=== PATIENT | female | born 1985 | race Caucasian/White ===

== ENCOUNTER 2017-03-13 12:53 | Emergency (ER) | payer SELFPAY ==
[2017-03-13 12:54] VITALS: BP 148/105; PULSE 116; RESP 17; TEMP 37.2; O2SAT 97; BMI 31.4
[2017-03-13 13:21] LABS: Bacteria 0 SEEN /hpf (None Seen); Mucous, Urine 0 SEEN /hpf (<or=2+); Squamous Epithelial Cells - UA 0 SEEN /hpf (5-10)
[2017-03-13] MEDS: Orphenadrine 60 MG/2 ML Ampul IM (13:21)
[2017-03-13] MEDS: Ketorolac 60 MG/2 ML Vial IM (13:21)
[2017-03-13] MEDS: HYDROmorphone 1 MG/ML Syringe IM (13:21)
[2017-03-13 13:23] LABS: Color, Urine Yellow (Yellow); Glucose, Dipstick Normal (Normal); Ketone-Dipstick Negative (Negative); Leukocyte Esterase-Dipstick Negative /ul (Negative); Nitrite-Dipstick Negative (Negative); Occult Blood-Urine 10 /ul (Negative); Protein-Dipstick Negative (Negative); Urine Bilirubin Dipstick Negative (Negative); Urine Clarity Clear (Clear); Urine Urobilinogen Normal (Normal)
[2017-03-13 13:31] LABS: Red Blood Cells-Urine 0-5 SEEN /hpf (0-5); White Blood Cells 0-5 SEEN /hpf (0-5)
--- NOTE | 2017-03-13 14:23 | ED.VISSUMM ---
- ER Visit Summary Date of Service: 03/13/17 Chief Complaint: [Back pain] History of Present Illness: The patient is a 31 F [presents with back pain ?2 days. Patient states that she woke up yesterday with discomfort in her back without any recalled trauma. Patient denies any fever or recent illness. Patient denies urinary symptoms. Denies any pain radiating down her legs or weakness in extremities. She denies any bowel or bladder dysfunction. Patient states that at rest if she just laying flat she does not have much discomfort but it is when she tries to move that she has a lot of discomfort.] Physical Examination: [HEENT-PERRLA, EOMI. Cranial nerves II through XII grossly intact. TMs clear. Mucous membranes moist. No adenopathy. Cardiovascular-regular rate and rhythm without murmur or ectopy Lungs-clear to auscultation, chest wall stable without crepitus or subcu emphysema Abdomen-normoactive bowel sounds, soft, nontender, no rebound or rigidity, no peritoneal signs. Back exam-patient has tenderness over lumbar paraspinal musculature bilaterally with spasm noted. No tenderness over the thoracic or lumbar spine itself. Patient has negative straight leg raises bilaterally. Deep tendon reflexes are plus 2 out of 4 bilaterally at the patella and Achilles. Patient has normal L5 extension bilaterally. Patient has normal sensation to light touch. Evaluation of the skin of the back reveals no evidence of erythema or bruising. There is no crepitus. Extremities-intact ?4, normal range of motion, normal pulses, atraumatic] Test Results: Urinalysis was normal. [] Emergency Department Course and Treatment: Patient was medicated with Toradol, Dilaudid, Phenergan, and Norflex. She has had some relief and is more comfortable but still has pain when she tries to move. [] Treatment Plan: Patient will be given a prescription for Percocet, Naprosyn, and Flexeril [] Disposition: [Discharged home in stable condition. Patient advised to return if worsening pain, fever, weakness in extremities, change in bowel or bladder function, or condition should worsen in any way.] Impression: [Lumbar strain/muscle spasm] This note was generated with [employer] dictation software. It may contain incorrect words, spelling, and punctuation that were not noted in review of the chart prior to signing ED Disposition - Plan for ED Patient: Chief Complaint: Back Referrals: Bryan Nolasco DO [Primary Care Provider] -
--- NOTE | 2017-03-13 14:26 | ED.DEP ---
ED Disposition - Plan for ED Patient: Chief Complaint: Back Instructions: ED Spasm Back No Trauma Prescriptions: Oxycodone HCl/Acetaminophen [Percocet 5/325] 1 tab PO Q6H PRN PRN #20 tab PRN Reason: Pain Naproxen [Naprosyn] 500 mg PO BID PRN #20 tab Cyclobenzaprine [Flexeril] 10 mg PO TID PRN #20 tab PRN Reason: Muscle Spasm Referrals: Bryan Nolasco DO [Primary Care Provider] - 3-5 Days
[2017-03-13] MEDS: oxyCODONE 5 MG Tablet 20 MG PO (14:50)
== END 2017-03-13 14:52 | disposition home or self-care (01) ==
LOC: ED 13:53
PROVIDERS: Emergency Provider Emergency Medicine; Family Provider Family Medicine; PCP Family Medicine
DX: S39.012A Strain of muscle, fascia and tendon of lower back, initial encounter (principal); M62.838 Other muscle spasm; X58.XXXA Exposure to other specified factors, initial encounter; Y93.9 Activity, unspecified; Y92.89 Other specified places as the place of occurrence of the external cause; Y99.9 Unspecified external cause status; Z72.0 Tobacco use
CPT/HCPCS: 81001; 96372; 99283

== ENCOUNTER 2017-04-22 20:13 | Emergency (ER) | payer SELFPAY ==
[2017-04-22 20:14] VITALS: BP 162/81; PULSE 81; RESP 16; TEMP 37.1; O2SAT 98; BMI 32.1
--- NOTE | 2017-04-22 20:59 | ED.VISSUMM ---
- ER Visit Summary Date of Service: 04/22/17 Chief Complaint: [] Going to the right posterior ear for a few days History of Present Illness: The patient is a 31 F [] that complaint for the last few days this is the fourth time this is happened the patient has no history of MRSA or infections is her only complaint no fever no cough no trauma no ear symptoms otherwise Physical Examination: [] Her general exams unremarkable the right posterior ear there is a subtle fullness behind the pinna there is no warmth or redness she feels there is fluid behind here she is insisting that if the I &D The exam is unremarkable the area underwent sterile prep local anesthetic and it was opened with an 11 blade productive of thick yellow fluid it was irrigated loculations broken down All the above the patient, culture sent, Test Results: [] Emergency Department Course and Treatment: [] She will be started on Bactrim DS she will follow-up with Dr. Patrick ENT or his team and return for change in symptoms wound care instructions given Treatment Plan: [] Disposition: [] Home stable Impression: [] Right posterior auricle abscess status post I&D This note was generated with [employer] dictation software. It may contain incorrect words, spelling, and punctuation that were not noted in review of the chart prior to signing ED Disposition - Plan for ED Patient: Chief Complaint: Ear Problem Referrals: Bryan Nolasco DO [Primary Care Provider] -
--- NOTE | 2017-04-22 21:01 | ED.DEP ---
ED Disposition - Plan for ED Patient: Chief Complaint: Ear Problem Instructions: ED Abscess IandD Prescriptions: Naproxen [Naprosyn] 500 mg PO BID PRN #20 tab Smz/Tmp Ds [Bactrim Ds] 1 tab PO BID #14 tab Referrals: Bryan Nolasco DO [Primary Care Provider] - Deshawn Page MD [STAFF PHYSICIAN] -
[2017-04-22] MEDS: HYDROcodone Bitartrate/Apap 5/325 Tablet PO (21:22)
[2017-04-22] MEDS: Smz/Tmp Ds Tablet 1 TABLET PO (21:22)
[2017-04-22 21:23] VITALS: BP 120/72; PULSE 75; RESP 14
== END 2017-04-22 21:26 | disposition home or self-care (01) ==
PROVIDERS: Emergency Provider Emergency Medicine; Family Provider Family Medicine; PCP Family Medicine
DX: H60.01 Abscess of right external ear (principal)
CPT/HCPCS: 69000; 87070; 87205; 99283

== ENCOUNTER → 2017-07-21 12:25 | Outpatient (CLI) | payer SELFPAY ==
--- NOTE | 2017-07-21 12:25 | DT_ITS ---
This patient was seen during an EMR downtime July 19, 2017 - July 26, 2017. This patient may have a combination of paper and electronic documentation or all paper documentation. All documentation is viewable within the e-chart portion of [employer] for each patient visit.
--- NOTE | 2017-07-21 12:25 | DT_ITS ---
This patient was seen during an EMR downtime July 19, 2017 - July 26, 2017. This patient may have a combination of paper and electronic documentation or all paper documentation. All documentation is viewable within the e-chart portion of [employer] for each patient visit.
[2017-07-26 04:51] LABS: Amphetamine Urine VISTA NEGATIVE (<1000 ng/mL); Barbiturate Urine VISTA POSITIVE (< 200 ng/mL); Benzodiazepine Urine VISTA POSITIVE (< 200 ng/mL); Cocaine Urine VISTA NEGATIVE (< 300 ng/mL); Ecstacy Urine VISTA NEGATIVE (< 500 ng/mL); Methadone Urine VISTA NEGATIVE (< 300 ng/mL); PCP Urine VISTA NEGATIVE (< 25 ng/mL); THC Urine VISTA NEGATIVE (< 50 ng/mL)
== END ==
PROVIDERS: Family Provider Family Medicine; PCP Family Medicine; Visit Provider Family Medicine
DX: R41.0 Disorientation, unspecified (principal)
CPT/HCPCS: 80307

== ENCOUNTER 2018-01-09 23:51 | Emergency (ER) | payer MEDICAID, SELFPAY ==
[2018-01-09 23:51] VITALS: BP 135/72; PULSE 103; RESP 16; TEMP 36.3; O2SAT 98; BMI 25.0
--- NOTE | 2018-01-10 00:12 | ED.VISSUMM ---
- ER Visit Summary Date of Service: 01/10/18 Chief Complaint: [] Abdominal pain History of Present Illness: The patient is a 32 F left upper abdominal pain for the last 7 days gradual onset continues waxes and wanes after eating. She had a couple episodes of emesis a couple days ago but that resolved. Has not come back. It feels like a sharp pain after she eats. She has been on a antacid remotely for reflux but is not having reflux so she is no longer taking that. She is tried Tylenol ibuprofen. She does not drink alcohol. She is never had endoscopy. Physical Examination: [] Vital signs reviewed General: Well-nourished well-developed Head: Normocephalic atraumatic Eyes: Pupils equal round and reactive to light extraocular movements intact ENT: TMs clear no hemotympanum no trauma Neck: Nontender full range of motion Cardiovascular: Regular rate rhythm no murmurs normal S1-S2 Respiratory: No distress clear to auscultation bilaterally chest nontender Abdomen: Soft nontender nondistended normal bowel sounds no masses Back: Nontender no CVA tenderness Extremities: Nontender active range of motion ?4 extremities no trauma Skin: Normal color no trauma Neuro alert oriented cranial nerves II through XII intact normal strength sensation reflexes Test Results: [] Emergency Department Course and Treatment: [] Patient given IV fluids, Pepcid, GI cocktail. Lab work obtained it is negative for acute abnormality. Hemoglobin 11.3. Liver lipase chemistries essentially normal except a chloride of 109. Patient also given a dose of Dilaudid and Phenergan for her symptoms. I think this is suspect a gastritis versus peptic ulcer. She will be discharged with a prescription for Prilosec. She will stick to a bland diet. Given GI referral. I do not feel she needs imaging. She may need outpatient endoscopy Treatment Plan: [] Disposition: [] Impression: [] Left upper abdominal pain suspect gastritis This note was generated with [employer] dictation software. It may contain incorrect words, spelling, and punctuation that were not noted in review of the chart prior to signing ED Disposition - Plan for ED Patient: Chief Complaint: Abd Pain Referrals: NOT,DEFINED [NON-STAFF] -
[2018-01-10] MEDS: 0.9% Normal Saline 1,000 ML 1000 ML IV (00:27)
[2018-01-10] MEDS: Famotidine 20 MG Tablet 40 MG PO (00:27)
[2018-01-10 00:38] LABS: Absolute Neutrophil Count 6.9 X10^3/uL (2.0-7.7); Basophil# 0.02 X10^3/uL; Basophil% 0.2 % (0-1); Hematocrit 39.4 % (37-47); Hemoglobin 13.4 g/dl (12.0-15.0); Lymphocyte % 24.5 % (19-41); Mean Corpuscular Hgb 32.4 pg (27.0-32.0); Mean Corpuscular Volume 95.2 fL (81-99); Mean Platelet Vol. 10.1 fl (6.2-12.0); Monocyte% 5.9 % (0-10); Neutrophil # 6.88 X10^3/uL (2.7-7.7); Neutrophil % 67.2 % (47-70); Platelet Count 289 K/mm3 (150-450); RBC Distribution Width CV 12.7 % (11.6-14.6); RBC Distribution Width SD 44.4 fl (35.1-43.9); Red Blood Count 4.14 M/mm3 (4.2-5.4); White Blood Count 10.2 K/mm3 (4.4-11.0)
[2018-01-10 00:47] LABS: POSITIVE COUNT NO; POSITIVE DIFFERENTIAL NO; POSITIVE MORPHOLOGY NO
[2018-01-10 01:11] LABS: AST(SGOT) 29 U/L (15-37); Alanine Aminotransfer ALT/SGPT 56 U/L (13-56); Albumin, Serum 3.9 g/dL (3.2-5.0); Alkaline Phosphatase 90 U/L (45-117); Anion Gap 7 (5-15); BUN 11 mg/dL (7-18); BUN/Creat Ratio 13.5 RATIO (10-20); Calcium,Total 9.3 mg/dL (8.5-10.1); Chloride 109 mmol/L (98-107); Creatinine, Serum 0.82 mg/dL (0.55-1.02); EST Glomerular Filtration Rate 86 mL/min (>60); Est Glom Filt Rate - Afr Amer 104 mL/min (>60); Estimated Creatinine Clearance 77.18 ml/min; Glucose 106 mg/dL (74-106); Lipase 85 U/L (73-393); Potassium 3.6 mmol/L (3.5-5.1); Protein, Total 7.9 g/dL (6.4-8.2); Sodium Level 138 mmol/L (136-145)
--- NOTE | 2018-01-10 01:28 | ED.DEP ---
ED Disposition - Plan for ED Patient: Disposition: Home or Assisted Living Chief Complaint: Abd Pain Instructions: ED PUD Vs Gastritis Prescriptions: Omeprazole [Prilosec] 40 mg PO DAILY #30 cap Referrals: NOT,DEFINED [NON-STAFF] - Woodrow Kowalski DO [NON CLINICAL AFFILIATE] - Joseph Anna MD [NON-STAFF] -
[2018-01-10] MEDS: proMETHazine 25 MG/ML Syringe 6.25 MG IV (01:38)
[2018-01-10] MEDS: HYDROmorphone 0.5 MG/0.5 ML SYRINGE IV (01:40)
[2018-01-10 02:33] VITALS: BP 123/67; PULSE 71; RESP 18; O2SAT 98
--- NOTE | 2018-01-12 14:05 | ED.RN ---
Pt called inquiring about another doctor to follow up. states her initial call to [facility] resulted in appt in August. I called to verify this and found pt had recalled and set an appt for february 16, 2018.
== END 2018-01-10 02:35 | disposition home or self-care (01) ==
PROVIDERS: Emergency Provider Emergency Medicine
DX: R10.10 Upper abdominal pain, unspecified (principal)
CPT/HCPCS: 80053; 83690; 85025; 96361; 96374; 96375; 99283; J7030

== ENCOUNTER 2018-06-17 06:05 | Day surgery (SDC) | payer SELFPAY ==
[2018-06-17] VITALS (7 sets, daily range): BP systolic 93–117; BP diastolic 44–94; PULSE 70–83; RESP 14–16; TEMP 36.5–37; O2SAT 94–100; BMI 27.5
--- NOTE | 2018-06-17 07:30 | CYST_PTH ---
PATIENT: JHONNY GAMBOA LOC: [facility] [place] U#:[id number] AGE/SX: 32/F ROOM: RE06/17/[address]: Dr. Edgard Schaeffer MD : 1985 BED: DIS: 06/17/2018 SPEC #: [id number] RECD: 06/17/18 10:28 STATUS: JAYCEE AMELIA #: [id number] BIBIANA: 06/17/18 07:[address]: Edgard Schaeffer DEPT: SURGICAL PATHOLOGY RECD BY: Marco A Collins ENTERED: 06/17/18 13:34 SP TYPE: Cyst OTHR DR: No Primary Care Phys Tissues: CYST Procedures: Surgery Specimen Level III HEADER OPERATION: Excision, sebaceous cyst, ear PRE-OP DIAGNOSIS: Infected sebaceous cyst, cellulitis of external ear - right TISSUE SUBMITTED: Sebaceous cyst, right ear MICROSCOPIC DIAGNOSIS Sebaceous cyst right ear, excision: Epidermal inclusion cyst with focal chronic inflammation and foreign body giant cell reaction. SJ:chirag 06/20/18 MICROSCOPIC DESCRIPTION Slides are reviewed. GROSS DESCRIPTION Received in fixative is one container labeled with the patient's name and designated sebaceous cyst right ear. The specimen consists of a piece of serna-white skin measuring 2.5 x 0.5 cm and up to 0.5 cm in thickness. The specimen is inked, bisected and reveals underlying tissue consisting of a cyst filled with serna-white cheesy material. The entire specimen is submitted in one cassette. / ALMA DELIA:chirag 06/17/18 TC:5 CPT: 72764
[2018-06-17] MEDS: Bacitracin 500 UNITS/GM PACKET (08:01)
--- NOTE | 2018-06-17 08:02 | PCM.OPRPT ---
Problem List (1) Sebaceous cyst of ear Status: Acute (2) Cellulitis of right external ear Status: Acute Report of Operation Date of Procedure: 06/17/18 Pre-Operative Diagnosis: Infected sebaceious cysts of posterior auricular crease of right ear Post-Operative Diagnosis: Same Surgery/Procedure Performed:: Excision of sebaceous cysts of right posterior auricular crease Description of Surgical Findings:: Zelda is a 32-year-old female since valuation recurrent infection drainage and swelling of sebaceous cyst in the right postauricular crease. Examination showed large sebaceous cyst in this region consistent with her history as well as scarring from previous incision and drainage and definitive excision of the cyst cavity prevent ongoing recurrences offered. The risks, alternatives, potential complications, and benefits were discussed at length and any questions answered to the patient and/or caregiver's satisfaction. Witnessed informed consent was obtained in the office, and the patient and/or caregiver was agreeable to proceed. Procedure went as follows: The patient was identified in the preoperative holding brought to the operating room she was placed under conscious sedation. When appropriate anesthesia obtained, the postauricular crease on the right side was then injected with 1% lidocaine with 100,000 epinephrine for a total of 4 mL. After lying for vasoconstriction, a 15 blade scalpel used to incise the skin 1 x 3 cm in size encompassing the sebaceous cysts along the right postauricular crease. Dissection was then carried out sharply through subcutaneous tissues including the cyst wall with care to not rupture the cavities. These were sent then en bloc as pathologic specimen. The wound edges were then cauterized with bipolar cautery for hemostasis and then closed deeply with interrupted 4-0 Vicryl suture. A running 5-0 Monocryl suture was then placed to close the skin. Bacitracin ointment was then applied. The patient was then returned to anesthesia having tolerated procedure well. Type of Anesthesia:: Local MAC Anesthesiologist: Edgard Diaz Special Medications: none Specimen's removed: Sebaceous cysts of right posterior auricular crease Drains: none Estimated Blood Loss (mL): 0 mL Fluids Replaced: 400 mL Grafts/Implants Used: none - Complications none - Admit VTE Documentation VTE Present on Admission: No VTE Mechan Device Prophylaxis: SCD's VTE Pharm Prophylaxis ordered?: No Reason prophylaxis not ordered:: Procedure Not Indicated
--- NOTE | 2018-06-17 08:11 | DCINST_ITS ---
- Discharge Diagnoses Current Active Problems: Current Active and Chronic Problems Sebaceous cyst of ear (Acute) Cellulitis of right external ear (Acute) You will use the following diet at home:: No restrictions Your food should be the consistency of: Regular Discharge Activity: Return to Normal Activity Call your doctor if your incision/area has: Sudden Increased Bleeding, Increased Pain/ Swelling Call your doctor if you observe: Fever of 101 or Higher, Uncontrolled pain Cleanse incision/area with: Do not get Incision Wet Allergies/Adverse Reactions: Allergies diphenhydramine [From Benadryl] Allergy (Verified 06/15/18 14:40) Other HIGH BP morphine Allergy (Verified 06/15/18 14:40) Anaphylaxis metoclopramide HCl [From Reglan] Adverse Reaction (Verified 06/15/18 14:40) Other ANXIETY ondansetron HCl [From Zofran (as hydrochloride)] Adverse Reaction (Verified 06/15/18 14:40) Other ANXIETY prochlorperazine edisylate [From Compazine] Adverse Reaction (Verified 06/15/18 14:40) Other ANXIETY prochlorperazine maleate [From Compazine] Adverse Reaction (Verified 06/15/18 14:40) Other ANXIETY Medications to take at Discharge NK 06/15/18 Primary Care Physician: Care Physician,No Primary [Primary Care Provider] - Test Results: Test results from this visit will be discussed in further detail at your follow- up appointment, if applicable. Please Follow Up With: Edgard Schaeffer MD When: 1 weeks
--- NOTE | 2018-06-17 08:59 | SUR.PHASEII ---
PATIENT C/O PAIN TO RIGHT INNER EAR WHICH SHE REPORTS IS THE EXACT SAME PAIN SHE HAS BEEN HAVING CHRONICALLY. STATES SHE HAS BEEN TAKING LEFTOVER PAIN MEDICINE FROM A PREVIOUS SURGERY. IS UPSET THAT SHE HAS NOT BEEN PRESCRIBED PAIN MEDICINE (NARCOTIC.) DR COSTA NOTIFIED, WILL NOT BE PRESCRIBED NARCOTIC PATIENT AND MOTHER WWERE TOLD PRIOR TO SURGERY, MAY HAVE TYLENOL/MOTRIN WHICH IS ORDERED.
== END 2018-06-17 08:59 | disposition home or self-care (01) ==
LOC: SDC 06:07 → AC 06:12
PROVIDERS: Referring Provider Otolaryngology; Visit Provider Otolaryngology
PROC: (CPT 69145; principal; 2018-06-17 07:15)
DX: L72.3 Sebaceous cyst (principal); H60.11 Cellulitis of right external ear; E78.5 Hyperlipidemia, unspecified; I10 Essential (primary) hypertension; F17.200 Nicotine dependence, unspecified, uncomplicated
CPT/HCPCS: 00120; 69145; 88304; J7120; J2405

== ENCOUNTER → 2019-08-02 | Outpatient (CLI) | payer SELFPAY ==
[2018-06-17 06:27] VITALS: BMI 27.5
--- NOTE | 2019-08-02 09:09 | MRI_ITS ---
STUDY: MR RIGHT HIP ARTHROGRAPHY REASON FOR EXAM: Right hip pain for 5-6 months. TECHNIQUE: Standardized fat and water weighted pulse sequences were obtained in all 3 orthogonal planes after intra-articular instillation of dilute Dotarem. COMPARISON: Fluoroscopic image from arthrogram preceding MRI. FINDINGS: Normal hip joint without articular joint space narrowing. Normal acetabulum. Normal labrum. Normal femoral head. Normal femoral neck and intratrochanteric region. Normal gluteus minimus, medius and iliopsoas tendons and distal insertions. There is no trochanteric, iliopsoas or iliopectineal bursitis. Normal superior and inferior pubic rami. Normal pubic symphysis. Normal ischial tuberosity. Normal origin of the hamstring tendons. Normal visualized iliac wing, sacroiliac joint, and sacral ala. There is iatrogenic edema in the musculature anterior to the right hip. MRI/Lower Ext/Jt Only/W Contrast IMPRESSION: Normal MR arthrography of the right hip without demonstrated labral tear. Electronically Signed: Pawel Ugalde MD at 12:27 EDT Tel , Service support ,
--- NOTE | 2019-08-02 09:09 | RAD_ITS ---
CLINICAL HISTORY: Female, 33 years old. Left hip pain. PROCEDURE: ARTHROGRAM - LEFT HIP CONSENT: The procedure as well as benefits and possible complications including bleeding and infection were explained to the patient. Informed consent was obtained. FLUOROSCOPY TIME (if supplied): (60 seconds) minutes/seconds Injection Information: 10 cc of dilute Dotarem Number of images obtained: 1 TECHNIQUE: (All elements of maximal sterile barrier technique followed, including US elements as applicable) The patient was in the supine position. The overlying skin was prepped and draped in usual sterile fashion. Following local anesthetic application and under direct fluoroscopic guidance, a 22-gauge spinal needle was placed into the hip joint. 2 cc of Isovue-300 was injected for confirmation. Following this, 10 cc of dilute MRI contrast was administered. The patient tolerated the procedure well. RAD/Arthrogram Hip w/ MRI IMPRESSION: Successful left hip arthrogram for MRI examination. Electronically Signed: Bhupinder Dacosta, at 11:11 EDT , Service support ,
--- NOTE | 2019-08-02 09:09 | MRI_ITS ---
STUDY: MR LEFT HIP ARTHROGRAPHY REASON FOR EXAM: Left hip pain for 5-6 months. TECHNIQUE: Standardized fat and water weighted pulse sequences were obtained in all 3 orthogonal planes after intra-articular instillation of dilute Dotarem. COMPARISON: Fluoroscopic image from arthrogram preceding MRI. FINDINGS: Normal hip joint without articular joint space narrowing. Normal acetabulum. Normal labrum. Normal femoral head. Normal femoral neck and intratrochanteric region. Normal gluteus minimus, medius and iliopsoas tendons and distal insertions. There is no trochanteric, iliopsoas or iliopectineal bursitis. Normal superior and inferior pubic rami. Normal pubic symphysis. Normal ischial tuberosity. Normal origin of the hamstring tendons. Normal visualized iliac wing, sacroiliac joint, and sacral ala. There is very mild iatrogenic edema in the musculature anterior to the left hip. MRI/Lower Ext/Jt Only/W Contrast IMPRESSION: Normal MR arthrography of the left hip without demonstrated labral tear. Electronically Signed: Pawel Ugalde MD at 12:26 EDT Tel , Service support ,
--- NOTE | 2019-08-02 09:09 | RAD_ITS ---
CLINICAL HISTORY: Female, 33 years old. Right hip pain. PROCEDURE: ARTHROGRAM - RIGHT HIP CONSENT: The procedure as well as the benefits and possible complications including infection and bleeding were explained to the patient. Informed consent was obtained. FLUOROSCOPY TIME (if supplied): (30 seconds) minutes/seconds Injection Information: 10 cc of dilute MRI contrast. Number of images obtained: 1 TECHNIQUE: (All elements of maximal sterile barrier technique followed, including US elements as applicable) The patient was in the supine position. The overlying skin was prepped and draped in the usual sterile fashion. Following local anesthetic application and under direct fluoroscopic guidance, a 22-gauge spinal needle was placed into the right hip joint. 2 cc of the Isovue 300 was injected for confirmation. Following this, 10 cc of dilute MRI contrast was injected. The patient tolerated the procedure well. RAD/Arthrogram Hip w/ MRI IMPRESSION: Successful right hip arthrogram with injection of dilute MRI contrast for MRI examination. The patient tolerated the procedure well. Electronically Signed: Bhupinder Dacosta, at 11:14 EDT , Service support ,
== END | disposition home or self-care (01) ==
LOC: RAD 09:02
PROVIDERS: Referring Provider Specialist; Visit Provider Specialist
DX: M25.552 Pain in left hip (principal); M25.851 Other specified joint disorders, right hip; M25.852 Other specified joint disorders, left hip
CPT/HCPCS: 27093; 73722; 77002; A9575; Q9967

== ENCOUNTER 2021-05-05 20:13 | Emergency (ER) | payer SELFPAY ==
[2021-05-05 20:14] VITALS: BP 109/77; PULSE 81; RESP 18; TEMP 36.5; O2SAT 99; BMI 27.8
--- NOTE | 2021-05-05 20:17 | RAD_ITS ---
STUDY: X-RAY - LEFT FOOT CLINICAL: Female, 35 years old. FALL TECHNIQUE: 3 view(s) of the foot. COMPARISON: None. FINDINGS: Normal talus, calcaneus, and tarsal bones. Normal visualized subtalar, talonavicular, calcaneocuboid, tarsal and tarsometatarsal articulations. Normal metatarsi. Normal metatarsophalangeal joint of the great toe. Normal tibial and fibular sesamoid bones. Normal interphalangeal joint of the great toe. Normal phalanges of the great toe. Normal second through fifth metatarsophalangeal joints. Normal interphalangeal joints and phalanges of the lesser toes. The soft tissue structures are unremarkable. RAD/Foot min 3 Views IMPRESSION: Normal x-ray examination of the foot. Electronically Signed: Geraldo Cody DO at 21:04 EDT ,
--- NOTE | 2021-05-05 22:18 | EDS_ITS ---
HPI History of Present Illness Chief Complaint: Lower Extremity Injury Narrative Narrative: 35-year-old female presenting with left ankle pain. 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 She is ambulatory with antalgic gait. She denies numbness or tingling. She has no bruising. PFSH PFSH Home Medications buprenorphine-naloxone 2 tab SUBLINGUAL DAILY 05/05/21 [History Last Taken Unknown] escitalopram oxalate 10 mg PO DAILY 05/05/21 [History Last Taken Unknown] naproxen [Naprosyn] 500 mg PO BID PRN #20 tab 05/05/21 [Rx Last Taken Unknown] prazosin 1 mg PO DAILY 05/05/21 [History Last Taken Unknown] Allergy/AdvReac Type Severity Reaction Status Date / Time diphenhydramine Allergy Other Verified 05/05/21 20:16 [From Benadryl] morphine Allergy Anaphylaxis Verified 05/05/21 20:16 metoclopramide HCl AdvReac Other Verified 05/05/21 20:16 [From Reglan] ondansetron HCl AdvReac Other Verified 05/05/21 20:16 [From Zofran (as hydrochloride)] prochlorperazine edisylate AdvReac Other Verified 05/05/21 20:16 [From Compazine] prochlorperazine maleate AdvReac Other Verified 05/05/21 20:16 [From Compazine] Surgical History H/O: hysterectomy Hx of cholecystectomy Social History Smoking Status: Current every day smoker tobacco type: cigarettes ROS ROS ED Constitutional Constitutional ED: Denies chills or fever(s) Eyes Eyes: Denies blurry vision or change in vision ENT ENT ED: Denies ear pain or rhinorrhea Cardiovascular Cardiovascular: Denies chest pain or palpitations Respiratory/Chest Respiratory/Chest: Denies cough, dyspnea or sputum Gastrointestinal Gastrointestinal: Denies abdominal pain, nausea or vomiting Genitourinary Genitourinary ED: Denies dysuria or hematuria Musculoskeletal Musculoskeletal: Reports other Details: Left ankle pain ; Denies myalgias Integumentary Denies rash Neurologic Neurologic: Denies headache(s) or weakness Psychiatric Psychiatric: Denies anxiety or depression EXAM Physical Exam Const Vital Signs: 05/05/21 20:14 Temperature 97.7 F L Temperature Source Temporal Pulse Rate 81 Respiratory Rate 18 Blood Pressure 109/77 Blood Pressure Mean 87 Pulse Ox 99 Oxygen Delivery Method Room Air Positive well nourished General Appearance ED: NAD HEENT normocephalic and atraumatic Eyes PERRL Resp normal respiratory effort Cardio regular rate and regular rhythm Extremity Extremity Narrative: .Tenderness palpation over the lateral malleolus. Mild edema. Plantar flexion dorsiflexion intact on left left foot neurovascular intact brisk cap refill to all 5 toes. No pain palpated in the left knee. Neuro oriented x3 Sensorium / Orientation: alert MDM MDM MDM Narrative Medical decision making narrative: Patient with pain to the left ankle. I obtained an x-ray and on my interpretation there is no fracture or subluxation. The radiologist does agree. Patient requested a walking boot because she has to walk a lot at work. She also requested crutches which ones have a home to tall. These are provided for her. She is given Naprosyn for home. Patient discharged stable condition. Impression: 1. Left ankle sprain Radiography Diagnostic Testing: Clinical Impression(s) from Imaging Studies Foot X-Ray 05/05/21 20:17 IMPRESSION: Normal x-ray examination of the foot. Electronically Signed: Geraldo Cody DO at 21:04 EDT Reading Location ID and State: [facility] / [place] Tel , Service support , Discharge Plan Triage Chief Complaint: Lower Extremity Injury ED Provider: Leeroy Rice Dx/Rx/DC Orders Instructions: ED Ankle Sprain (Adult) Prescriptions: New naproxen [Naprosyn] 500 mg tablet 500 mg PO BID PRN (Reason: pain) Qty: 20 RF: 0 No Action prazosin 1 mg capsule 1 mg PO DAILY RF: 0 escitalopram oxalate 10 mg tablet 10 mg PO DAILY RF: 0 buprenorphine-naloxone 8-2 mg tablet, sublingual 2 tab SUBLINGUAL DAILY RF: 0 Primary Care Provider: Care Physician,No Primary Referrals: Care Physician,No Primary [Primary Care Provider] - Disposition Disposition: Home, Self Care
--- NOTE | 2021-05-05 22:50 | ED.RN ---
NO CRUTCHES AVAILABLE IN HOSP PER EQUIPMENT MECHANIC SPECIALIST
== END 2021-05-05 22:51 | disposition home or self-care (01) ==
PROVIDERS: Emergency Provider Student in an Organized Health Care Education/Training Program; Visit Provider Student in an Organized Health Care Education/Training Program
DX: S93.402A Sprain of unspecified ligament of left ankle, initial encounter (principal); X50.1XXA Overexertion from prolonged static or awkward postures, initial encounter; Y93.89 Activity, other specified; Y99.8 Other external cause status; Y92.810 Car as the place of occurrence of the external cause; F17.210 Nicotine dependence, cigarettes, uncomplicated
CPT/HCPCS: 73630; 99283

== ENCOUNTER 2021-12-25 01:38 | Emergency (ER) | payer SELFPAY ==
[2021-12-25 01:39] VITALS: BP 112/57; PULSE 92; RESP 18; TEMP 36; O2SAT 99; BMI 27.8
--- NOTE | 2021-12-25 01:54 | EDS_ITS ---
HPI History of Present Illness Chief Complaint: Headache Narrative Narrative: 36-year-old female with history of migraine headaches presenting with headache. This is not an acute onset headache. She states typical of her migraines. She has had it since about 1 PM. She is only tried Tylenol at home. She admits to nausea and vomiting. No fever, chills, neck pain. Not dizzy or lightheaded. No visual complaints. Patient states she had a reaction to Benadryl 1 time through the IV and she was told she is allergic to it. She has used oral Benadryl at home since then without any issues. She also has allergies to Reglan and Compazine. She was told she is allergic to these 2. Patient also admits to an allergy to Zofran. Patient states that she does not have any health insurance now so she does not have a primary care provider. She has no abortive therapy. She states she is been seen by neurology in the past and they did not find a source for her migraines. She reports a migraine maybe once a year. No head trauma. [facility] Medical History Migraine Home Medications naproxen 500 mg tablet (Naprosyn) 500 mg PO BID PRN pain #20 tabs 12/25/21 [Rx Last Taken Unknown] promethazine 25 mg tablet 25 mg PO TID PRN nausea and vomiting #14 tabs 12/25/21 [Rx Last Taken Unknown] Allergy/AdvReac Type Severity Reaction Status Date / Time diphenhydramine Allergy Other Verified 12/25/21 01:44 [From Benadryl] morphine Allergy Anaphylaxis Verified 05/05/21 20:16 metoclopramide HCl AdvReac Other Verified 05/05/21 20:16 [From Reglan] ondansetron HCl AdvReac Other Verified 05/05/21 20:16 [From Zofran (as hydrochloride)] prochlorperazine edisylate AdvReac Other Verified 05/05/21 20:16 [From Compazine] prochlorperazine maleate AdvReac Other Verified 05/05/21 20:16 [From Compazine] Surgical History H/O: hysterectomy Hx of cholecystectomy Social History Smoking Status: Current every day smoker tobacco type: cigarettes ROS ROS ED Constitutional Constitutional ED: Denies chills or fever(s) Eyes Eyes: Denies change in vision or diplopia ENT ENT ED: Denies rhinorrhea Cardiovascular Cardiovascular: Denies chest pain or palpitations Respiratory/Chest Respiratory/Chest: Denies cough or dyspnea Gastrointestinal Gastrointestinal: Reports nausea and vomiting; Denies abdominal pain Genitourinary Genitourinary ED: Denies dysuria or hematuria Musculoskeletal Musculoskeletal: Denies arthralgias or back pain Integumentary Denies abscess or Abrasions Neurologic Neurologic: Reports headache(s); Denies paresthesias Psychiatric Psychiatric: Denies anxiety or depression EXAM Physical Exam Const Vital Signs: 12/25/21 01:39 Temperature 96.8 F L Temperature Source Temporal Pulse Rate 92 Respiratory Rate 18 Blood Pressure 112/57 L Blood Pressure Mean 75 Pulse Ox 99 Oxygen Delivery Method Room Air Positive well nourished General Appearance ED: NAD; Negative for pallor HEENT Reports normocephalic and moist mucous membranes atraumatic Eyes PERRL and EOMs intact bilaterally Neck no lymphadenopathy Resp normal respiratory effort and clear to auscultation bilaterally Cardio regular rate and regular rhythm Back/Spine no CVA tenderness Extremity normal to inspection Neuro oriented x3 and CN's II-XII intact bilaterally Sensorium / Orientation: awake and alert Speech: speech normal Motor Exam: strength 5/5 throughout Psych mental status grossly normal Skin General Skin Exam: Negative for jaundice or pallor MDM MDM MDM Narrative Medical decision making narrative: Patient presenting with headache typical of her migraine headaches. She had imaging in the past. She does not have any abortive therapy at home because she does not her primary care physician due to loss of insurance. She is allergic to Reglan, Compazine, Zofran. She states she has an allergy to IV Benadryl. She states it made her crawl out of her skin. She has taken oral Benadryl at home without any problem. She states that typically she gets treated with Phenergan and Toradol. She has had some success with Decadron in the past as well. Patient ordered 15 mg of IV Toradol, liter of IV fluids, 12.5 mg IM of promethazine and 10 of Decadron IV. She has had imaging of her brain in the past and no believe she needs a CT brain at this time. She has no focal neurologic deficits or lateralizing signs or symptoms. Patient feels improved at 2:40 AM. She states her headache is better. Its not all the way gone but she feels well enough to go home and try to sleep. Patient discharged home in stable condition. Impression: 1. Headache 2. Nausea/vomit Discharge Plan Triage Chief Complaint: Headache ED Provider: Leeroy Rice Dx/Rx/DC Orders Prescriptions: New promethazine 25 mg tablet 25 mg PO TID PRN (Reason: nausea and vomiting) Qty: 14 0RF naproxen [Naprosyn] 500 mg tablet 500 mg PO BID PRN (Reason: pain) Qty: 20 0RF Primary Care Provider: Care Physician,No Primary Referrals: [facility] [Outside] - 3-5 Days Care Physician,No Primary [Primary Care Provider] - Disposition Disposition: Home, Self Care
[2021-12-25] MEDS: Ketorolac 15 MG/ML Vial IV (02:01)
[2021-12-25] MEDS: proMETHazine 25 MG/ML Syringe 12.5 MG IM (02:01)
[2021-12-25] MEDS: 0.9% Normal Saline 1,000 ML 999 ML IV (02:01)
[2021-12-25] MEDS: dexAMETHasone 10 MG/ML Vial IV (02:04)
== END 2021-12-25 02:55 | disposition home or self-care (01) ==
PROVIDERS: Emergency Provider Student in an Organized Health Care Education/Training Program; Visit Provider Student in an Organized Health Care Education/Training Program
DX: R51.9 Headache, unspecified (principal); R11.2 Nausea with vomiting, unspecified; F17.210 Nicotine dependence, cigarettes, uncomplicated
CPT/HCPCS: 96361; 96372; 96374; 96375; 99283; J7030; A4216

== ENCOUNTER 2022-10-20 09:20 | Emergency (ER) | payer SELFPAY ==
[2022-10-20 09:21] VITALS: BP 123/74; PULSE 85; RESP 18; TEMP 36.3; O2SAT 100; BMI 25.1
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
--- NOTE | 2022-10-20 09:51 | RAD_ITS ---
STUDY: X-RAY - LEFT KNEE REASON FOR EXAM: Female, 37 years old. Injury TECHNIQUE: 2 view(s) of the knee. COMPARISON: None. FINDINGS: Normal visualized distal femur. Normal visualized proximal tibia and fibula. Normal proximal tibiofibular articulation. Normal medial femorotibial compartment. Normal lateral femorotibial compartment. Normal patellofemoral articulation. The soft tissue structures are unremarkable. RAD/Knee 1 or 2 Views IMPRESSION: Normal x-ray examination of the knee. Electronically Signed: Bhupinder Dacosta MD at 11:10 EDT ,
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
--- NOTE | 2022-10-20 09:51 | RAD_ITS ---
STUDY: X-RAY - LEFT HAND REASON FOR EXAM: Female, 37 years old. Injury -- ring finger TECHNIQUE: 3 view(s) of the hand. COMPARISON: None. FINDINGS: Normal radiocarpal articulation. Normal distal radioulnar joint. Old avulsion fracture of the ulnar styloid. Normal visualized carpal bones. Normal carpal articulations Normal carpometacarpal articulation of the thumb. Normal second through fifth carpometacarpal joints. Normal metacarpi. Normal metacarpophalangeal joint of the thumb. Normal interphalangeal joint of the thumb. Normal proximal and distal phalanges of the thumb. Normal metacarpophalangeal joints of the second through fifth fingers. Normal proximal and distal interphalangeal joints of the second through fifth fingers. Normal phalanges of the second through fifth fingers. The soft tissue structures are unremarkable. RAD/Hand Min 3 Views IMPRESSION: Old avulsion fracture of the ulnar styloid. Electronically Signed: Bhupinder Dacosta MD at 11:09 EDT ,
--- NOTE | 2022-10-20 09:51 | RAD_ITS ---
STUDY: X-RAY - LEFT SHOULDER REASON FOR EXAM: Female, 37 years old. Injury TECHNIQUE: 4 view(s) of the shoulder. COMPARISON: None. FINDINGS: Normal glenohumeral articulation. Normal acromioclavicular joint. Normal acromion. Normal humeral head and visualized proximal humerus. Findings suggestive of a soft tissue laceration. Normal visualized pulmonary apex. RAD/Shoulder min 2 Views IMPRESSION: No fracture or dislocation. Questionable soft tissue laceration. Electronically Signed: Bhupinder Dacosta MD at 11:11 EDT ,
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
[2022-10-20] MEDS: Ondansetron ODT 4 MG Tablet PO (10:05)
[2022-10-20] MEDS: HYDROmorphone 0.5 MG/0.5 ML SYRINGE IM (10:05)
[2022-10-20 10:07] VITALS: O2SAT 98
[2022-10-20] MEDS: Ibuprofen 600 MG Tablet PO (12:12)
[2022-10-20] MEDS: HYDROcodone Bitartrate/Apap 5/325 Tablet PO (12:12)
[2022-10-20 12:13] VITALS: RESP 16
== END 2022-10-20 12:18 | disposition home or self-care (01) ==
PROVIDERS: Emergency Provider Emergency Medicine; Visit Provider Emergency Medicine
DX: S43.52XA Sprain of left acromioclavicular joint, initial encounter (principal); S80.02XA Contusion of left knee, initial encounter; F17.210 Nicotine dependence, cigarettes, uncomplicated; S70.01XA Contusion of right hip, initial encounter; V49.40XA Driver injured in collision with unspecified motor vehicles in traffic accident, initial encounter
CPT/HCPCS: 70450; 71046; 73030; 73130; 73502; 73560; 96372; 99284

== ENCOUNTER 2025-02-06 17:46 | Emergency (ER) | payer MEDICAID, SELFPAY ==
[2025-02-06 17:51] VITALS: BP 126/75; PULSE 96; RESP 18; TEMP 36.3; O2SAT 100; BMI 29.3
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
== END 2025-02-06 18:51 | disposition home or self-care (01) ==
PROVIDERS: Emergency Provider Emergency Medicine; Visit Provider Emergency Medicine
DX: T25.221A Burn of second degree of right foot, initial encounter (principal); T25.222A Burn of second degree of left foot, initial encounter; F17.210 Nicotine dependence, cigarettes, uncomplicated; X19.XXXA Contact with other heat and hot substances, initial encounter; Z79.899 Other long term (current) drug therapy; Z23 Encounter for immunization
CPT/HCPCS: 90471; 90715; 99283